=== PATIENT | male | born 1955 | race Two or more races ===

== ENCOUNTER 2019-09-16 11:21 | Emergency (ER) | payer OTHER ==
[~2019-09-16] VITALS: Ht 172.7 cm; Wt 93.0 kg
[2019-09-16] MEDS ORDERED: CRESTOR10 MG (11:59)
[2019-09-16] MEDS ORDERED: COZAAR50 MG (11:59)
[2019-09-16] MEDS ORDERED: TOPROL XL25 MG (11:59)
[2019-09-16] MEDS ORDERED: IBUPROFEN800 MG (12:00)
[2019-09-16] MEDS ORDERED: NEURONTIN300 MG (12:00)
[2019-09-16] MEDS ORDERED: NORFLEX100MG PO (12:41)
[2019-09-16] MEDS ORDERED: NEURONTIN300 MG PO (12:41)
[2019-09-16] MEDS ORDERED: MEDROLPACK PO (12:41)
[2019-09-16] MEDS ORDERED: KETO10TA2 PO (12:41)
[2019-09-23] MEDS ORDERED: PERCOCET 5-3251 EACH PO (11:26)
[2019-09-23] MEDS ORDERED: KETO10TA2 PO (11:55)
[2019-09-23] MEDS ORDERED: GRALISE600 MG PO (11:55)
[2019-09-23] MEDS ORDERED: GABAPENTIN300 M2 PO (11:55)
[2019-09-23] MEDS ORDERED: NORFLEX100MG PO (11:55)
== END 2019-09-16 13:39 | disposition home or self-care (01) ==
LOC: ER 11:21
DX: M54.5 Low back pain (principal)